=== PATIENT | male | born 1990 | race Two or more races ===

== ENCOUNTER 2016-12-05 17:21 | Emergency (ER) | payer MEDICAID, OTHER ==
--- NOTE | 2016-12-05 19:07 | ER Document Report ---
ED General - General Chief Complaint: Foreign Body in Eye Stated Complaint: FOREIGN BODY IN EYE Time Seen by Provider: 12/05/16 19:04 Mode of Arrival: Ambulatory Information source: Patient Notes: Patient is a 26-year-old male who presents with left eye redness, swelling and foreign body sensation. He states early this evening he was using a table saw to cut a piece of wood when he felt a piece of that would flap into his left eye. He states that he did immediately wash his eye out with water. He endorses associated left-sided headache. He is not taking any pain medication for this. He was not wearing protective eye wear at the time of the incident. He does not wear contacts or glasses. He denies any changes in vision or blurred vision. TRAVEL OUTSIDE OF THE [place] IN LAST 30 DAYS: No - Related Data Allergies/Adverse Reactions: No Known Allergies Allergy (Verified 09/25/15 21:52) Past Medical History - General Information source: Patient, Relative - Social History Smoking Status: Never Smoker Family History: Reviewed & Not Pertinent Renal/ Medical History: Denies: Hx Peritoneal Dialysis Review of Systems - Review of Systems Constitutional: See HPI EENT: See HPI Cardiovascular: No symptoms reported Respiratory: No symptoms reported Gastrointestinal: No symptoms reported Genitourinary: No symptoms reported Male Genitourinary: No symptoms reported Musculoskeletal: No symptoms reported Skin: No symptoms reported Hematologic/Lymphatic: No symptoms reported Neurological/Psychological: No symptoms reported Physical Exam - Vital signs Vitals: Temp Pulse BP Pulse Ox 97.9 F 71 132/80 H 97 12/05/16 17:55 12/05/16 17:55 12/05/16 17:55 12/05/16 17:55 Interpretation: Hypertensive - Notes Notes: PHYSICAL EXAM: CONSTITUTIONAL: Alert and oriented, well-appearing and in no acute distress. HENT: Normocephalic, atraumatic. Moist mucous membranes. EYES: Pupils equal round and reactive to light, EOM intact. Right eye - Sclera anicteric, conjunctiva are normal. No entrapment. Left eye with upper eyelid edema, left conjunctiva with erythema, no chemosis. NO retained FB on wood's lamp exam. HEART: Regular rate and rhythm without murmurs. LUNGS: CTAB and equal. No wheezes, rales or rhonchi. EXTREMITIES: Normal range of motion, no pitting edema. No cyanosis. Cap Refill < 3 seconds. NEURO: Cranial nerves grossly intact. Normal sensory/motor exams. PSYCH: Normal mood, normal affect. SKIN: Warm and dry. Normal turgor. No rashes or lesions noted. Course - Re-evaluation Re-evalutation: 12/05/16 19:07 Patient seen and examined. Eye examined using tetracaine and wood's lamp. NO foreign body on wood's lamp exam. Will treat empirically with opth abx, discussed flushing with sterile water. Advised to follow-up with opthalmology. At this time, will discharge with return precautions and follow-up recommendations. Verbal discharge instructions given at the bedside and opportunity for questions given. Medication warnings reviewed. Patient is in agreement with this plan and has verbalized understanding of return precautions and the need for primary care follow-up in the next 24-72 hours. - Vital Signs Vital signs: Temp Pulse Resp BP Pulse Ox 97.9 F 71 132/80 H 97 12/05/16 17:55 12/05/16 17:55 12/05/16 17:55 12/05/16 17:55 Discharge - Discharge Clinical Impression: Corneal abrasion, left Qualifiers: Encounter type: initial encounter Qualified Code(s): S05.02XA - Injury of conjunctiva and corneal abrasion without foreign body, left eye, initial encounter Condition: Stable Disposition: HOME, SELF-CARE Instructions: Corneal Abrasion ([facility]) Additional Instructions: Use the eye drops every day for the next 5 days. For days 1-2, put 1 drop in left eye every 2 hours while awake. For days 3-5 put 1 drop in left eye every 4 hours while awake. Prescriptions: Ciprofloxacin HCl [Ciloxan 0.3% Oph Soln 2.5 ml] 1 drop OP ASDIR 5 Days #1 bottle Forms: Elevated Blood Pressure
[2016-12-05] MEDS ORDERED: TETRACAINE HCL 0.5% OPH SOLN 2 ML OS ONE (20:15)
[2016-12-05] MEDS ORDERED: IBUPROFEN 600 MG TABLET PO ONE (20:15)
[2016-12-05 20:46] VITALS: BP 125/74
== END 2016-12-05 20:44 | disposition home or self-care (01) ==
LOC: ER 17:21
DX: S05.02XA Injury of conjunctiva and corneal abrasion without foreign body, left eye, initial encounter (principal); X58.XXXA Exposure to other specified factors, initial encounter; Y93.H3 Activity, building and construction; Y99.0 Civilian activity done for income or pay
CPT/HCPCS: 99283